=== PATIENT | female | born 1975 | race American Indian/Alaskan Native ===

== ENCOUNTER 2017-06-24 12:15 | Inpatient (IN) | payer OTHER ==
[2017-06-24 15:09] LABS: Basophils % (Auto) 0.7 % (0.0-1.8); Eosinophils % (Auto) 2.5 % (0.0-4.3); Mean Corpuscular HGB Conc 33 % (30-34); Mean Corpuscular Hemoglobin 28 pg (28-32); Mean Corpuscular Volume 83 fl (79-97); Platelet Count 382 K/mm3 (140-440); Red Cell Distribution Width 15.1 % (13.2-15.2); White Blood Count 8.7 K/mm3 (4.5-11.0)
[2017-06-24 15:25] LABS: Anion Gap 16 mmol/L; BUN/Creatinine Ratio 12; Blood Urea Nitrogen 11 mg/dL (7-17); Calcium 9.8 mg/dL (8.4-10.2); Carbon Dioxide 28 mmol/L (22-30); Chloride 99.1 mmol/L (98-107); Glucose 88 mg/dL (65-100); Potassium 4.3 mmol/L (3.6-5.0); Sodium 139 mmol/L (137-145)
[2017-06-24] MEDS ORDERED: REGLAN IV ONE (17:18)
[2017-06-24] MEDS ORDERED: MAGNESIUM SULFATE 2GM/50ML 2 GM/50 ML BAG IV ONE (17:18)
[2017-06-24] MEDS ORDERED: NITROSTAT SL PRN (17:18)
[2017-06-24] MEDS ORDERED: NACL 0.9% 1000 ML 1,000 ML IV ONE (17:19)
[2017-06-24] MEDS ORDERED: APRESOLINE IV ONE (17:20)
--- NOTE | 2017-06-24 17:20 | Emergency Department Report ---
ED General Adult HPI - General Chief complaint: High BP Stated complaint: HEADACHE AND CHEST PAIN Time Seen by Provider: 06/24/17 17:06 Source: patient, RN notes reviewed Mode of arrival: Ambulatory Limitations: No Limitations - History of Present Illness Initial comments: This is a 41-year-old female, the patient is previously known to this provider, Dr. Palma Patient presents to the ER with 2 complaints today. The patient's first complaint is headache. The headache is throbbing. It started a few days ago. Headache is not sudden or thunderclap in nature. It did not reach maximal intensity within an hour, it is not. She reports getting a headache at least twice a week, and reports she had a worse headache a few weeks ago. There is no neck pain and there is no neck stiffness, no fevers or chills, no nausea, vomiting or diaphoresis. Next complaint is chest pain. The chest pain is central and in the back. Patient reports "it feels like the veins are tearing." There is no leg pain there is no leg swelling, the patient reports that she is not , the patient reports that she does not take control tablets, she also describes resolved binocular blurry vision which has since resolved. -: Gradual Location: head, chest Radiation: back Quality: aching Consistency: intermittent Improves with: other (the headache decreases with rest. The headache worsens with exposure to light. Chest pain does not have exacerbating or relieving factors.) Worsens with: other (as per history of present illness) Associated Symptoms: chest pain, headaches, shortness of breath - Related Data Allergies Allergy/AdvReac Type Severity Reaction Status Date / Time diphenhydramine Allergy Swelling Verified 06/24/17 12:23 [From Benadryl] Penicillins Allergy Shortness Verified 06/24/17 12:23 of Breath ED Review of Systems ROS: Stated complaint: HEADACHE AND CHEST PAIN Other details as noted in HPI Constitutional: denies: fever Eyes: denies: vision change ENT: denies: epistaxis Respiratory: shortness of breath Cardiovascular: chest pain Gastrointestinal: denies: abdominal pain Genitourinary: as per HPI Musculoskeletal: as per HPI, back pain Skin: denies: lesions Neurological: headache. denies: weakness ED Past Medical Hx - Past Medical History Hx Hypertension: Yes - Surgical History Additional Surgical History: D&C - Social History Smoking Status: Never Smoker Substance Use Type: Alcohol ED Physical Exam - General Limitations: No Limitations General appearance: alert, in no apparent distress - Head Head exam: Present: atraumatic, normocephalic - Eye Eye exam: Present: normal appearance, PERRL, EOMI, other (visual acuity intact to finger counting, color perception, reading at a close distance). Absent: nystagmus - ENT ENT exam: Present: normal exam, mucous membranes moist - Neck Neck exam: Present: normal inspection, full ROM. Absent: tenderness, meningismus - Respiratory Respiratory exam: Present: normal lung sounds bilaterally. Absent: respiratory distress, wheezes, rales, rhonchi, stridor, chest wall tenderness, accessory muscle use, decreased breath sounds, prolonged expiratory - Cardiovascular Cardiovascular Exam: Present: regular rate, normal rhythm, normal heart sounds. Absent: bradycardia, tachycardia, irregular rhythm, systolic murmur, diastolic murmur, rubs, gallop - GI/Abdominal GI/Abdominal exam: Present: soft, normal bowel sounds. Absent: distended, tenderness, guarding, rebound, rigid, pulsatile mass - Extremities Exam Extremities exam: Present: normal inspection, full ROM, normal capillary refill. Absent: pedal edema, joint swelling, calf tenderness - Back Exam Back exam: Present: normal inspection, full ROM. Absent: tenderness, CVA tenderness (R), CVA tenderness (L), muscle spasm, paraspinal tenderness, vertebral tenderness - Neurological Exam Neurological exam: Present: alert, oriented X3, normal gait, other (Extraocular movements intact. Tongue midline. No facial droop. Facial sensation intact to light touch in the V1, V2, V3 distribution bilaterally. 5 and 5 strength in 4 extremities.. Sensation is intact to light touch in 4 extremities.). Absent : motor sensory deficit - Psychiatric Psychiatric exam: Present: normal affect, normal mood - Skin Skin exam: Present: warm, dry, intact, normal color. Absent: rash ED Course Vital Signs 06/24/17 06/24/17 06/24/17 12:23 18:20 18:30 Temperature 98.7 F Pulse Rate 110 H 89 Respiratory 22 18 Rate Blood Pressure 221/130 177/107 O2 Sat by Pulse 100 98 Oximetry - Reevaluation(s) Reevaluation #1: 06/24/17 19:23 Differential diagnosis: Migraine headache, tension headache, cluster headache, intracranial hemorrhage, acute coronary syndrome, pneumonia, costochondritis, aortic dissection Assessment and plan: 41-year-old female with headache, chest pain, resolved binocular blurry vision. The patient currently has a GCS of 15, with NIH score of 0, and appears quite comfortable. Blood pressure improved in the 170s, noncontrast CT scan of the brain is negative, CT scan of the chest, abdomen, pelvis is pending to exclude aortic disease/pathology. No pulmonary embolus or DVT risk factors, low risk by well's criteria. Moderate risk by heart score given complaint of chest pain and shortness of breath along with generalized malaise, not appropriate for outpatient ACS risk stratification given markedly elevated blood pressure. Currently waiting CT scan interpretation. Reevaluation #2: 06/24/17 19:24 Patient reports multiple chronic and frequent headaches, neurologic exam appropriate and within normal limits at this time, patient's headache history is not consistent with ischemic stroke or subarachnoid hemorrhage by history and by physical exam. Reevaluation #3: 06/24/17 20:16 CT scan of the abdomen/pelvis is negative Reevaluation #4: 06/24/17 20:26 Dr Ibrahim to followup on ct chest and contact hospice bereavement coordinator to arrange admission ED Medical Decision Making - Lab Data Result diagrams: 06/24/17 14:46 06/24/17 14:46 - EKG Data -: EKG Interpreted by Nd EKG shows normal: sinus rhythm - EKG Data 06/24/17 19:22 Normal sinus, 77 bpm, borderline left axis deviation, high left ventricular voltage, poor R-wave progression, abnormal EKG, not morphologically consistent with STEMI - Radiology Data Radiology results: report reviewed, image reviewed X-ray of the chest is negative for acute disease. Noncontrast CT scan of the brain is negative. CT scan of the chest, abdomen, pelvis: Critical care attestation.: If time is entered above; I have spent that time in minutes in the direct care of this critically ill patient, excluding procedure time. ED Disposition Clinical Impression: Chest pain, Hypertensive urgency Disposition: OP ADMIT IP TO THIS HOSP Is pt being admited?: Yes Condition: Good Instructions: Chest Pain (ED) Referrals: AMY DANIELSON MD [Primary Care Provider] - 3-5 Days
[2017-06-24] MEDS ORDERED: NACL ONE (17:34)
--- NOTE | 2017-06-24 19:10 | Cat Scan Report ---
FINAL REPORT EXAM: CT HEAD/BRAIN WO CON HISTORY: headache, blurry vision hypertension TECHNIQUE: Noncontrast CT axial images of the brain. PRIORS: None. FINDINGS: No parenchymal mass, mass effect, hemorrhage, midline shift or hydrocephalus. No evidence of acute cortical infarct. No abnormal, extra-axial fluid or air collection. Osseous calvarium grossly intact. IMPRESSION: 1. No acute intracranial findings.
--- NOTE | 2017-06-24 20:06 | Cat Scan Report ---
FINAL REPORT EXAM: CT ANGIO ABDOMEN PELVIS HISTORY: chest pain, aorta protocol TECHNIQUE: Spiral CTA of the abdomen and pelvis after the uneventful administration of IV contrast. Multiplanar reformations. 150 mL Omnipaque IV. PRIORS: None. FINDINGS: Arteriogram: Normal enhancement of the abdominal aorta. No abnormal aneurysmal dilatation, aortic dissection, or significant stenosis. Celiac axis, SMA and renal arteries demonstrate normal enhancement without significant stenosis. No retroperitoneal hematoma. Abdomen: Visualized lung bases grossly unremarkable. No radiopaque gallstones. Stomach incompletely or nondistended, with some wall and fold thickening, but no significant perigastric fat stranding. Liver without significant abnormality. Spleen without significant abnormality. Pancreas without significant abnormality. Kidneys without significant abnormality. Adrenal glands without significant abnormality. Pelvis: Bowel grossly unremarkable. Appendix within normal limits. No significant free peritoneal fluid or apparent adenopathy. Multiple uterine fibroids, largest in left fundal region measuring approximately 2.7 cm. IUD noted within the uterus. Ovoid, cystic focus in left ovary measuring approximately 2.5 x 4 cm.. IMPRESSION: 1. No aortic aneurysm or apparent dissection. 2. Findings which may be due to incomplete or nondistention versus nonspecific postinflammatory change in the stomach. Correlate clinically. 3. Leiomyomatous change in the uterus. 4. Findings which may represent functional cystic change in the left ovary. Correlation with pelvic ultrasound may help in further evaluation, as clinically indicated.
--- NOTE | 2017-06-24 20:41 | Cat Scan Report ---
FINAL REPORT EXAM: CT ANGIO CHEST HISTORY: chest pain, aortic protocol TECHNIQUE: Spiral CTA of the chest after the uneventful administration of IV contrast. Multiplanar reformations. 150 mL Omnipaque IV. PRIORS: None. FINDINGS: Chest: Thoracic aorta demonstrates normal caliber and enhancement. No apparent aneurysm, pseudoaneurysm or aortic dissection. The main and bilateral proximal pulmonary arteries are opacified without apparent filling defects. No significant lymph node enlargement or axillary adenopathy. Lungs show no discrete parenchymal mass, focal consolidation or pleural effusions. No apparent pneumothorax. Visualized upper abdomen grossly unremarkable. IMPRESSION: 1. No acute findings.
[2017-06-24] MEDS ORDERED: MORPHINE IV PRN (23:14)
--- NOTE | 2017-06-24 23:14 | History and Physical Report ---
History of Present Illness Date of examination: 06/24/17 History of present illness: 41-year-old woman with a history of hypertension, noncompliant with medication comes emergency room with complaint of headache, chest pain. Chest pain is in the anterior chest that she describes a sharp, intermittent in nature, and lasted for 3 minutes, intensity 5/10, no radiation, she can identify exacerbating or relieving factors. Denies nausea vomiting, shortness breath, diaphoresis or palpitation. Blood pressure was greater than 220 systolic. Review Of Systems: Constitutional: no weight loss Ears, eyes, nose, mouth and throat: no nasal congestion, no nasal discharge, no sinus pressure, blurry vision, diplopia Neck: No neck pain or rigidity. Cardiovascular: no orthopnea, palpitations Respiratory: No shortness of breath, cough Gastrointestinal: no abdominal pain, hematochezia Genitourinary : no dysuria, frequency , hematuria Musculoskeletal: no muscle ache Integumentary: no rash, no pruritis Neurological: no parathesias, focal weakness Endocrine: no cold or heat intolerance, no polyuria or polydipsia Hematologic/Lymphatic: no easy bruising, no easy bleeding, no gland swelling Allergic/Immunologic: no urticaria, no angioedema. PAST MEDICAL HISTORY:hypertension PAST SURGICAL HISTORY: None FAILY HISTORY:hypertension SOCIAL HISTORY: Denies alcohol, tobacco, drugs Medications and Allergies Allergies Allergy/AdvReac Type Severity Reaction Status Date / Time diphenhydramine Allergy Swelling Verified 06/24/17 12:23 [From Benadryl] Penicillins Allergy Shortness Verified 06/24/17 12:23 of Breath Active Meds: Active Medications Nitroglycerin (Nitrostat) 0.4 mg SL .Q5MIN PRN PRN Reason: Chest Pain Exam - Physical Exam Narrative exam: Gen. appearance: Patient lying in bed in no acute distress HEENT: Normocephalic/atraumatic, pupils equal round reactive to light, extra alkaline movement intact, no scleral icterus, no JVD or thyromegaly or nodule, neck is supple, mucous membrane moist, no erythema or exudate Heart: S1-S2, regular rate and rhythm Lungs: Clear to auscultation bilateral breathing comfortable Abdomen: Positive bowel sounds, nontender, nondistended, no organomegaly Extremities: No edema, cyanosis, clubbing Neuro:: Oriented 3 , cranial nerves II-12 intact, speech, motor intact Skin: No rash, nodules, warm dry - Constitutional Vitals: Temp Pulse Resp BP Pulse Ox 98.7 F 102 H 13 167/91 98 06/24/17 12:23 06/24/17 21:15 06/24/17 21:15 06/24/17 21:15 06/24/17 18:30 Results - Labs CBC & Chem 7: 06/24/17 14:46 06/24/17 14:46 Labs: Abnormal lab results 06/24/17 Range/Units 14:46 RBC 5.40 H (3.65-5.03) M/mm3 Hgb 15.0 H (10.1-14.3) gm/dl Hct 45.0 H (30.3-42.9) % Lymph % (Auto) 42.0 H (13.4-35.0) % [place] % (Auto) 9.0 H (0.0-7.3) % - Imaging and Cardiology EKG: image reviewed Chest x-ray: image reviewed CT scan - abdomen: report reviewed CT scan - chest: report reviewed CT scan - pelvis: report reviewed Assessment and Plan Assessment Assessment Hypertensive urgency Chest pain mostly secondary to #1 Headache secondary to #1 Plan Admit to medicine Check cardiac enzymes, obtain stress test, IV hydralazine Start Norvasc, DVT prophylaxis
[2017-06-25] MEDS ORDERED: TYLENOL PO PRN (01:24)
[2017-06-25] MEDS ORDERED: DULCOLAX PR PRN (01:24)
[2017-06-25] MEDS ORDERED: MILK OF MAGNESIA PO PRN (01:24)
[2017-06-25] MEDS ORDERED: APRESOLINE IV PRN (01:24)
[2017-06-25] MEDS ORDERED: ZOFRAN IV PRN (01:24)
[2017-06-25 02:40] LABS: Creatine Kinase 181 units/L (30-135)
[2017-06-25 02:52] LABS: Creatine Kinase MB 1.7 ng/mL (0.0-4.0)
[2017-06-25 06:34] LABS: Creatine Kinase MB 2.2 ng/mL (0.0-4.0)
[2017-06-25 06:36] LABS: Creatine Kinase 113 units/L (30-135)
--- NOTE | 2017-06-25 08:21 | XRay Report ---
CHEST 2 VIEWS INDICATION: Chest pain, shortness of breath. COMPARISON: None similar at this institution. FINDINGS: PA and lateral chest radiographs demonstrate limited inspiration with slight exaggerated heart size and minimally crowded lung markings. Normal mediastinal and hilar contours. Minimal fluid or thickening along the minor fissure. No pleural effusions or CHF. Intact bones. CONCLUSION: No acute disease. Thank you for the opportunity to participate in this patient's care.
[2017-06-25] MEDS: NORVASC PO SCH (11:28)
[2017-06-25] MEDS: LOVENOX SUB-Q SCH (11:29)
[2017-06-25] MEDS: HCTZ PO SCH (13:20)
--- NOTE | 2017-06-25 20:51 | Progress Note ---
Assessment and Plan Assessment and plan: 1. Hypertensive urgency Received IV antihypertensives, then started on amlodipine BP still elevated, will add HCTZ Continue to monitor and further adjust regimen as needed 2. Chest pain EKG with no acute ischemic changes, cardiac enzymes negative, stress test with no reversible ischemia Likely secondary to uncontrolled hypertension Now resolved 3. Headache Secondary to uncontrolled hypertension Resolved 4. Obesity/Metabolic syndrome Check lipid profile Counseled regarding Importance of losing weight and lifestyle changes 5. DVT prophylaxis History Interval history: chest pain and headache resolved, doing well Hospitalist Physical - Constitutional Vitals: Temp Pulse Resp BP Pulse Ox 98.4 F 101 H 18 148/80 98 06/25/17 19:33 06/25/17 19:33 06/25/17 19:33 06/25/17 19:33 06/25/17 19:33 General appearance: Present: no acute distress, obese - EENT Eyes: Present: PERRL, EOM intact. Absent: scleral icterus, conjunctival injection - Neck Neck: Present: supple, normal ROM. Absent: masses or JVD - Respiratory Respiratory effort: normal Respiratory: bilateral: CTA, negative: rhonchi, wheezing - Cardiovascular Rhythm: regular Heart Sounds: Present: S1 & S2. Absent: systolic murmur - Extremities Extremities: no ischemia - Abdominal General gastrointestinal: soft, non-tender, non-distended, normal bowel sounds - Neurologic Neurologic: CNII-XII intact, no focal deficits Results - Labs CBC & Chem 7: 06/24/17 14:46 06/24/17 14:46 Labs: Laboratory Last Values WBC 8.7 K/mm3 (4.5-11.0) 06/24/17 14:46 RBC 5.40 M/mm3 (3.65-5.03) H 06/24/17 14:46 Hgb 15.0 gm/dl (10.1-14.3) H 06/24/17 14:46 Hct 45.0 % (30.3-42.9) H 06/24/17 14:46 MCV 83 fl (79-97) 06/24/17 14:46 MCH 28 pg (28-32) 06/24/17 14:46 MCHC 33 % (30-34) 06/24/17 14:46 RDW 15.1 % (13.2-15.2) 06/24/17 14:46 Plt Count 382 K/mm3 (140-440) 06/24/17 14:46 Lymph % (Auto) 42.0 % (13.4-35.0) H 06/24/17 14:46 [place] % (Auto) 9.0 % (0.0-7.3) H 06/24/17 14:46 Eos % (Auto) 2.5 % (0.0-4.3) 06/24/17 14:46 Baso % (Auto) 0.7 % (0.0-1.8) 06/24/17 14:46 Lymph # 3.6 K/mm3 (1.2-5.4) 06/24/17 14:46 [place] # 0.8 K/mm3 (0.0-0.8) 06/24/17 14:46 Eos # 0.2 K/mm3 (0.0-0.4) 06/24/17 14:46 Baso # 0.1 K/mm3 (0.0-0.1) 06/24/17 14:46 Seg Neutrophils % 45.8 % (40.0-70.0) 06/24/17 14:46 Seg Neutrophils # 4.0 K/mm3 (1.8-7.7) 06/24/17 14:46 Sodium 139 mmol/L (137-145) 06/24/17 14:46 Potassium 4.3 mmol/L (3.6-5.0) 06/24/17 14:46 Chloride 99.1 mmol/L (98-107) 06/24/17 14:46 Carbon Dioxide 28 mmol/L (22-30) 06/24/17 14:46 Anion Gap 16 mmol/L 06/24/17 14:46 BUN 11 mg/dL (7-17) 06/24/17 14:46 Creatinine 0.9 mg/dL (0.7-1.2) 06/24/17 14:46 Estimated GFR > 60 ml/min 06/24/17 14:46 BUN/Creatinine Ratio 12 % 06/24/17 14:46 Glucose 88 mg/dL (65-100) 06/24/17 14:46 Calcium 9.8 mg/dL (8.4-10.2) 06/24/17 14:46 Total Creatine Kinase 113 units/L (30-135) 06/25/17 05:42 CK-MB (CK-2) 2.2 ng/mL (0.0-4.0) 06/25/17 05:42 CK-MB (CK-2) Rel Index 1.9 (0-4) 06/25/17 05:42 Troponin T < 0.010 ng/mL (0.00-0.029) 06/25/17 05:42 Triglycerides 52 mg/dL (2-149) 06/25/17 05:52 Cholesterol 212 mg/dL (50-199) H 06/25/17 05:52 LDL Cholesterol Direct 146 mg/dL (50-130) H 06/25/17 05:52 HDL Cholesterol 56 mg/dL (40-59) 06/25/17 05:52 Cholesterol/HDL Ratio 3.78 % 06/25/17 05:52 - Imaging and Cardiology EKG: image reviewed CT scan - abdomen: report reviewed CT scan - chest: report reviewed CT Scan - head: report reviewed
[2017-06-26 09:11] VITALS: BP 149/88
[2017-06-26] MEDS: HCTZ PO SCH (09:49)
[2017-06-26] MEDS: LOVENOX SUB-Q SCH (09:49)
[2017-06-26] MEDS: NORVASC PO SCH (09:49)
--- NOTE | 2017-06-26 10:00 | Discharge Summary ---
Providers - Providers Date of Admission: 06/24/17 23:13 Date of discharge: 06/26/17 Attending physician: CECY HERNANDEZ Primary care physician: AMY DANIELSON Hospitalization Reason for admission: headache, chest pain Condition: Good Pertinent studies: CXR CT head CTA chest/abdomen Stress test Hospital course: Patient is a 41 year old obese AAF with HTN, noncompliant, who presented for severe headache and chest pain and found to be in hypertensive urgency. Underwent multiple imaging tests, including CT head, CTA chest/abdomen/pelvis which showed no acute findings. Also, acute coronary syndrome was excluded based on EKG, serial cardiac enzymes and normal stress test. All her symptoms were secondary to uncontrolled hypertension. She was treated initially with IV antihypertensives, then was transitioned to oral ones; antihypertensive regimen has been adjusted for better BP control. She was also found to have hyperlipidemia and was started on statin. Was extensively counseled regarding importance of adherence to treatment, follow-up appointments, as well as, losing weight and lifestyle changes. Discharge diagnoses: 1. Hypertensive urgency 2. Chest pain 3. Headache 4. Obesity/Metabolic syndrome 5. Hyperlipidemia Disposition: DC-01 TO HOME OR SELFCARE Time spent for discharge: 40 min Core Measure Documentation - Palliative Care Palliative Care/ Comfort Measures: Not Applicable - Core Measures Any of the following diagnoses?: none Exam - Physical Exam Narrative exam: Seen and examined: - Constitutional Vitals: Temp Pulse Resp BP Pulse Ox 97.7 F 76 18 149/88 98 06/26/17 09:10 06/26/17 09:10 06/26/17 03:35 06/26/17 09:10 06/26/17 03:35 General appearance: Present: no acute distress, obese - EENT Eyes: Present: PERRL, EOM intact - Neck Neck: Present: supple, normal ROM. Absent: masses or JVD - Respiratory Respiratory effort: normal Respiratory: bilateral: CTA, negative: rhonchi, wheezing - Cardiovascular Rhythm: regular Heart Sounds: Present: S1 & S2. Absent: systolic murmur - Extremities Extremities: no ischemia - Abdominal General gastrointestinal: Present: soft, non-tender, non-distended, normal bowel sounds - Musculoskeletal Musculoskeletal: strength equal bilaterally - Neurologic Neurologic: CNII-XII intact, no focal deficits Plan Activity: no restrictions Diet: low cholesterol, low salt Follow up with: AMY DANIELSON MD [Primary Care Provider] - 3-5 Days Prescriptions: amLODIPine [Norvasc] 10 mg PO QDAY #30 tablet Atorvastatin (Nf) [Lipitor (Nf)] 20 mg PO QDAY #30 tablet Hydrochlorothiazide [HCTZ] 25 mg PO QDAY #30 tablet
== END 2017-06-26 11:58 | disposition home or self-care (01) | DRG 305 ==
LOC: ED 12:15 → 4A 23:13
PROVIDERS: ADMIT Internal Medicine; ATTEND Internal Medicine
DX: I16.0 Hypertensive urgency (principal); I10 Essential (primary) hypertension; E78.5 Hyperlipidemia, unspecified; E88.81 Metabolic syndrome and other insulin resistance; E66.9 Obesity, unspecified; Z91.14 Patient's other noncompliance with medication regimen; Z68.36 Body mass index [BMI] 36.0-36.9, adult
CPT/HCPCS: 36415; 70450; 71020; 71275; 74174; 80048; 80061; 82550; 82553; 84484; 85025; 93005; 93010; 93017; J0360; J1650; J2765; J2930; J3475; J7030; Q9967